=== PATIENT | female | born 1975 | race Two or more races ===

== ENCOUNTER 2018-12-14 06:25 | Inpatient (IN) | payer OTHER ==
[2018-12-14] MEDS ORDERED: DESFLURANE 15 MIN (07:00)
[2018-12-14] MEDS ORDERED: NEOSTIGMINE 10 MG INJ (07:00)
[2018-12-14] MEDS ORDERED: NA BICARBONATE 8.4% 50 ML SYG (07:00)
[2018-12-14] MEDS ORDERED: GLYCOPYRROLATE 0.4 MG INJ (07:00)
[2018-12-14] MEDS ORDERED: ONDANSETRON 4 MG INJ (07:00)
[2018-12-14] MEDS ORDERED: FENTAnyl 50 MCG/ML VIAL ×2 (07:01→09:42)
[2018-12-14] MEDS ORDERED: PROPOFOL 0 ML (07:02)
[2018-12-14] MEDS ORDERED: MIDAZOLAM 1 MG/ML 2 ML INJ (07:02)
[2018-12-14] MEDS ORDERED: DEXAMETHASONE 4 MG/ML 5 ML INJ (07:13)
[2018-12-14] MEDS ORDERED: SUCCINYLCHOLINE CHLORIDE 100 MG/5 ML SYG IV (07:13)
[2018-12-14] MEDS ORDERED: METOCLOPRAMIDE 10 MG INJ (07:13)
[2018-12-14] MEDS ORDERED: LIDOCAINE 2% (SDV) 5 ML INJ (07:13)
[2018-12-14] MEDS ORDERED: ROCURONIUM 50 MG INJ (07:13)
[2018-12-14] MEDS ORDERED: PROPOFOL 20 ML ×2 (07:13)
[2018-12-14] MEDS ORDERED: LABETALOL HCL 20MG INJ IV (07:30)
[2018-12-14] MEDS ORDERED: IPRATROPIUM (NEB) 0.5 MG/2.5 ML AMP HHN (07:30)
[2018-12-14] MEDS ORDERED: LEVALBUTEROL (NEB) 1.25 MG/0.5 ML AMP HHN (07:30)
[2018-12-14] MEDS ORDERED: DIPHENHYDRAMINE 50 MG INJ IV (07:30)
[2018-12-14] MEDS ORDERED: HYDROmorphONE 0.5 MG/0.5 ML SYG IV ×3 (07:30)
[2018-12-14] MEDS ORDERED: MIDAZOLAM 1 MG/ML 2 ML INJ IV (07:30)
[2018-12-14] MEDS ORDERED: MEPERIDINE 25 MG INJ IV (07:30)
[2018-12-14] MEDS ORDERED: LORAZEPAM 2 MG INJ IV (07:30)
[2018-12-14] MEDS ORDERED: hydrALAzine 20 MG INJ IV (07:30)
[2018-12-14] MEDS ORDERED: FENTAnyl 50 MCG/ML VIAL IV (07:30)
[2018-12-14] MEDS: HEPARIN 1000 UNITS/ML 10 ML INJ (08:55)
[2018-12-14] MEDS: CEFAZOLIN 1 GM INJ (08:55)
[2018-12-14] MEDS: GELATIN SIZE 100 SPONGE (08:55)
[2018-12-14] MEDS: THROMBIN 5000 UNIT VIAL (08:55)
[2018-12-14] MEDS: ROPIVACAINE 0.5 % 30 ML VIAL (08:55)
[2018-12-14] MEDS ORDERED: hydrALAzine 20 MG INJ (10:21)
[2018-12-14] MEDS ORDERED: HYDROmorphONE 2 MG/ML SYG (11:40)
[2018-12-14] MEDS: ONDANSETRON 4 MG INJ IV (13:05)
[2018-12-14] MEDS: FENTAnyl 50 MCG/ML VIAL IV (13:06)
[2018-12-14] MEDS ORDERED: ONDANSETRON 4 MG INJ IV (14:30)
[2018-12-14] MEDS ORDERED: GLUCAGON 1 MG INJ IM (17:30)
[2018-12-14] MEDS ORDERED: DEXTROSE 50% 50 ML SYRINGE IV ×2 (17:30)
[2018-12-14] MEDS ORDERED: GLUCOSE GEL 15 GRAM TUBE BUCCAL (17:30)
[2018-12-14] MEDS ORDERED: GLUCOSE GEL 15 GRAM TUBE PO ×2 (17:30)
[2018-12-14] MEDS: SOD CHLORIDE 0.9% 1,000 ML IV (17:34)
[2018-12-14] MEDS: INSULIN ASPART [NOVOLOG] 3 ML PEN SC ×2 (19:04→20:37)
[2018-12-14] MEDS: SENNA/DOCUSATE NA (8.6MG/50MG) TAB PO (21:00)
[2018-12-14] MEDS: ACETAMINOPHEN 325 MG TAB PO (21:32)
[2018-12-15] MEDS: HYDROmorphONE 0.5 MG/0.5 ML SYG IV ×3 (04:15→17:15)
[2018-12-15 06:28] LABS: ADD MAN DIFF? NO
[2018-12-15 06:33] LABS: BASOPHILS % 0.1 % (0.0-2.0); HEMATOCRIT 27.1 % (37.0-47.0); HEMOGLOBIN 9.3 g/dl (12.0-16.0); LYMPHOCYTES # 1.8 10^3/ul (0.8-2.9); MEAN CORPUSCULAR HEMOGLOBIN 26.8 pg (29.0-33.0); MEAN CORPUSCULAR HGB CONC 34.3 g/dl (32.0-37.0); MEAN CORPUSCULAR VOLUME 78.1 fl (82.0-101.0); MEAN PLATELET VOLUME 11.3 fl (7.4-10.4); MONOCYTE # 1.4 10^3/ul (0.3-0.9); NEUTROPHIL # 10.3 10^3/ul (1.6-7.5); NEUTROPHILS % 76.6 % (39.0-77.0); PLATELET COUNT 177 10^3/UL (140-415); RED BLOOD COUNT 3.47 10^6/ul (4.20-5.40); RED CELL DISTRIBUTION WIDTH 14.8 % (11.5-14.5)
[2018-12-15 06:33] LABS: WHITE BLOOD COUNT 13.5 10^3/ul (4.8-10.8)
[2018-12-15] MEDS: SOD CHLORIDE 0.9% 1,000 ML IV ×2 (06:50→19:52)
[2018-12-15 06:53] LABS: HEMOGLOBIN A1C 6.3 % (0-5.9)
[2018-12-15 06:59] LABS: INR 1.09; PARTIAL THROMBOPLASTIN TIME 29.3 Sec (23.0-35.0); PROTIME 14.2 Sec (11.9-14.9); PT RATIO 1.1
[2018-12-15] MEDS ORDERED: SUGAMMADEX SODIUM 200 MG/2 ML VIAL IV (07:00)
[2018-12-15] MEDS ORDERED: ALBUMIN HUMAN 25% 100 ML INJ (07:00)
[2018-12-15] MEDS ORDERED: METOCLOPRAMIDE 10 MG INJ (07:00)
[2018-12-15] MEDS ORDERED: DESFLURANE 15 MIN (07:00)
[2018-12-15] MEDS ORDERED: DEXAMETHASONE 4 MG/ML 5 ML INJ (07:00)
[2018-12-15] MEDS: INSULIN ASPART [NOVOLOG] 3 ML PEN SC ×4 (07:35→21:38)
[2018-12-15 07:46] LABS: ANION GAP 11 (5-13); BLOOD UREA NITROGEN 9 mg/dl (7-20); CALCIUM 8.9 mg/dl (8.4-10.2); CARBON DIOXIDE 22 mmol/L (21-31); CHLORIDE 109 mmol/L (97-110); CREATININE 0.47 mg/dl (0.44-1.00); Estimated GFR > 60 mL/min (>60); GLUCOSE 99 mg/dl (70-220); POTASSIUM 3.6 mmol/L (3.5-5.1); SODIUM 142 mmol/L (135-144)
[2018-12-15] MEDS: SENNA/DOCUSATE NA (8.6MG/50MG) TAB PO ×2 (09:00→21:00)
[2018-12-15] MEDS ORDERED: FENTAnyl 50 MCG/ML VIAL (09:12)
[2018-12-15] MEDS ORDERED: PROPOFOL 20 ML ×2 (09:13→09:15)
[2018-12-15] MEDS ORDERED: MIDAZOLAM 1 MG/ML 2 ML INJ (09:13)
[2018-12-15] MEDS ORDERED: LIDOCAINE 2% (SDV) 5 ML INJ (09:15)
[2018-12-15] MEDS ORDERED: CEFAZOLIN 1 GM INJ (09:16)
[2018-12-15] MEDS ORDERED: SUCCINYLCHOLINE CHLORIDE 100 MG/5 ML SYG IV (09:16)
[2018-12-15] MEDS ORDERED: ROCURONIUM 50 MG INJ (09:16)
[2018-12-15] MEDS ORDERED: ONDANSETRON 4 MG INJ (09:16)
[2018-12-15] MEDS ORDERED: THROMBIN (BOVINE) 5,000 UNIT VIAL TP (13:12)
[2018-12-15] MEDS ORDERED: LEVALBUTEROL (NEB) 1.25 MG/0.5 ML AMP HHN (15:00)
[2018-12-15] MEDS ORDERED: FENTAnyl 50 MCG/ML VIAL IV ×2 (15:00)
[2018-12-15] MEDS ORDERED: LABETALOL HCL 20MG INJ IV (15:00)
[2018-12-15] MEDS ORDERED: hydrALAzine 20 MG INJ IV (15:00)
[2018-12-15] MEDS ORDERED: DIPHENHYDRAMINE 50 MG INJ IV (15:00)
[2018-12-15] MEDS ORDERED: MEPERIDINE 25 MG INJ IV (15:00)
[2018-12-15] MEDS ORDERED: HYDROmorphONE 0.5 MG/0.5 ML SYG IV ×3 (15:00)
[2018-12-15] MEDS ORDERED: IPRATROPIUM (NEB) 0.5 MG/2.5 ML AMP HHN (15:00)
[2018-12-15] MEDS ORDERED: MIDAZOLAM 1 MG/ML 2 ML INJ IV (15:00)
[2018-12-15] MEDS: GELATIN SIZE 100 SPONGE (15:40)
[2018-12-15] MEDS: THROMBIN 5000 UNIT VIAL TOP (15:41)
[2018-12-15] MEDS: POLYMYXIN/BACITRACIN 1L IRRIG (15:41)
[2018-12-15] MEDS: ROPIVACAINE 0.5 % 30 ML VIAL (15:41)
[2018-12-15] MEDS: FENTAnyl 50 MCG/ML VIAL IV (17:35)
[2018-12-15] MEDS: ONDANSETRON 4 MG INJ IV (17:55)
[2018-12-15] MEDS: METOPROLOL 5 MG INJ IV (18:28)
[2018-12-15] MEDS: NS + KCL 20 MEQ 1,000 ML IV (18:56)
[2018-12-15] MEDS: LORAZEPAM 2 MG INJ IV (19:47)
[2018-12-16] MEDS: HYDROmorphONE 0.5 MG/0.5 ML SYG IV ×7 (01:34→23:59)
[2018-12-16] MEDS: NS + KCL 20 MEQ 1,000 ML IV ×3 (04:24→15:59)
[2018-12-16 04:50] LABS: ADD MAN DIFF? NO
[2018-12-16 04:55] LABS: WHITE BLOOD COUNT 10.2 10^3/ul (4.8-10.8)
[2018-12-16 04:55] LABS: BASOPHILS % 0.1 % (0.0-2.0); HEMATOCRIT 23.6 % (37.0-47.0); LYMPHOCYTES % 9.6 % (15.0-51.0); MEAN CORPUSCULAR HEMOGLOBIN 26.8 pg (29.0-33.0); MEAN CORPUSCULAR HGB CONC 33.9 g/dl (32.0-37.0); MEAN CORPUSCULAR VOLUME 79.2 fl (82.0-101.0); MONOCYTE # 0.8 10^3/ul (0.3-0.9); MONOCYTES % 7.8 % (0.0-11.0); NEUTROPHIL # 8.4 10^3/ul (1.6-7.5); NEUTROPHILS % 81.9 % (39.0-77.0); PLATELET COUNT 125 10^3/UL (140-415); RED BLOOD COUNT 2.98 10^6/ul (4.20-5.40)
[2018-12-16 05:11] LABS: ANION GAP 10 (5-13); BLOOD UREA NITROGEN 6 mg/dl (7-20); CALCIUM 9.2 mg/dl (8.4-10.2); CARBON DIOXIDE 24 mmol/L (21-31); CHLORIDE 109 mmol/L (97-110); CREATININE 0.44 mg/dl (0.44-1.00); Estimated GFR > 60 mL/min (>60); GLUCOSE 118 mg/dl (70-220); POTASSIUM 3.9 mmol/L (3.5-5.1); SODIUM 143 mmol/L (135-144)
[2018-12-16] MEDS: INSULIN ASPART [NOVOLOG] 3 ML PEN SC ×4 (07:30→20:33)
[2018-12-16] MEDS: SENNA/DOCUSATE NA (8.6MG/50MG) TAB PO ×2 (08:18→20:30)
[2018-12-16] MEDS ORDERED: ZOLPIDEM 5 MG TAB PO (21:30)
[2018-12-17] MEDS: NS + KCL 20 MEQ 1,000 ML IV ×3 (02:50→19:32)
[2018-12-17] MEDS: HYDROCODONE/APAP (5/325) TAB PO ×4 (02:50→21:23)
[2018-12-17] MEDS: HYDROmorphONE 0.5 MG/0.5 ML SYG IV ×4 (06:29→22:38)
[2018-12-17 06:47] LABS: ADD MAN DIFF? NO
[2018-12-17 06:51] LABS: BASOPHIL # 0.1 10^3/ul (0.0-0.1); BASOPHILS % 0.6 % (0.0-2.0); EOSINOPHILS % 0.2 % (0.0-7.0); HEMATOCRIT 23.7 % (37.0-47.0); HEMOGLOBIN 8.1 g/dl (12.0-16.0); LYMPHOCYTES # 2.8 10^3/ul (0.8-2.9); LYMPHOCYTES % 27.1 % (15.0-51.0); MEAN CORPUSCULAR HEMOGLOBIN 27.3 pg (29.0-33.0); MEAN CORPUSCULAR HGB CONC 34.2 g/dl (32.0-37.0); MEAN CORPUSCULAR VOLUME 79.8 fl (82.0-101.0); MEAN PLATELET VOLUME 10.8 fl (7.4-10.4); MONOCYTE # 0.7 10^3/ul (0.3-0.9); MONOCYTES % 6.8 % (0.0-11.0); NEUTROPHIL # 6.6 10^3/ul (1.6-7.5); NEUTROPHILS % 64.9 % (39.0-77.0); PLATELET COUNT 121 10^3/UL (140-415); RED BLOOD COUNT 2.97 10^6/ul (4.20-5.40)
[2018-12-17 06:51] LABS: WHITE BLOOD COUNT 10.2 10^3/ul (4.8-10.8)
[2018-12-17 07:22] LABS: ANION GAP 9 (5-13); Estimated GFR > 60 mL/min (>60)
[2018-12-17 07:27] LABS: BLOOD UREA NITROGEN 8 mg/dl (7-20); CALCIUM 8.3 mg/dl (8.4-10.2); CARBON DIOXIDE 22 mmol/L (21-31); CHLORIDE 109 mmol/L (97-110); CREATININE 0.46 mg/dl (0.44-1.00); GLUCOSE 89 mg/dl (70-220); POTASSIUM 3.5 mmol/L (3.5-5.1); SODIUM 140 mmol/L (135-144)
[2018-12-17] MEDS: INSULIN ASPART [NOVOLOG] 3 ML PEN SC ×4 (07:52→20:54)
[2018-12-17] MEDS: SENNA/DOCUSATE NA (8.6MG/50MG) TAB PO ×2 (07:53→20:50)
[2018-12-18] MEDS: HYDROmorphONE 0.5 MG/0.5 ML SYG IV ×7 (03:28→22:12)
[2018-12-18] MEDS: NS + KCL 20 MEQ 1,000 ML IV ×2 (05:32→15:55)
[2018-12-18] MEDS: SENNA/DOCUSATE NA (8.6MG/50MG) TAB PO ×2 (08:47→21:00)
[2018-12-18] MEDS: HYDROCODONE/APAP (5/325) TAB PO ×2 (08:47→14:50)
[2018-12-18] MEDS: INSULIN ASPART [NOVOLOG] 3 ML PEN SC ×4 (08:50→21:00)
[2018-12-19] MEDS: HYDROmorphONE 0.5 MG/0.5 ML SYG IV ×6 (00:21→22:17)
[2018-12-19] MEDS: NS + KCL 20 MEQ 1,000 ML IV ×3 (01:18→21:29)
[2018-12-19] MEDS: INSULIN ASPART [NOVOLOG] 3 ML PEN SC ×4 (08:50→20:54)
[2018-12-19] MEDS: HYDROCODONE/APAP (5/325) TAB PO ×3 (09:01→20:36)
[2018-12-19] MEDS: SENNA/DOCUSATE NA (8.6MG/50MG) TAB PO ×2 (09:09→20:31)
[2018-12-19] MEDS: MAGNESIUM HYDROXIDE 30ML CUP PO (13:54)
[2018-12-19 15:03] LABS: ADD MAN DIFF? NO
[2018-12-19 15:06] LABS: BASOPHILS % 0.5 % (0.0-2.0); EOSINOPHILS # 0.1 10^3/ul (0.0-0.5); EOSINOPHILS % 1.5 % (0.0-7.0); HEMATOCRIT 26.6 % (37.0-47.0); HEMOGLOBIN 9.2 g/dl (12.0-16.0); LYMPHOCYTES # 2.2 10^3/ul (0.8-2.9); LYMPHOCYTES % 25.2 % (15.0-51.0); MEAN CORPUSCULAR HEMOGLOBIN 26.7 pg (29.0-33.0); MEAN CORPUSCULAR HGB CONC 34.6 g/dl (32.0-37.0); MEAN CORPUSCULAR VOLUME 77.3 fl (82.0-101.0); MEAN PLATELET VOLUME 9.7 fl (7.4-10.4); MONOCYTE # 0.6 10^3/ul (0.3-0.9); MONOCYTES % 6.8 % (0.0-11.0); NEUTROPHIL # 5.7 10^3/ul (1.6-7.5); NEUTROPHILS % 65.8 % (39.0-77.0); PLATELET COUNT 202 10^3/UL (140-415); RED BLOOD COUNT 3.44 10^6/ul (4.20-5.40); RED CELL DISTRIBUTION WIDTH 14.9 % (11.5-14.5)
[2018-12-19 15:06] LABS: WHITE BLOOD COUNT 8.7 10^3/ul (4.8-10.8)
[2018-12-19 15:27] LABS: ANION GAP 9 (5-13); BLOOD UREA NITROGEN 5 mg/dl (7-20); CARBON DIOXIDE 24 mmol/L (21-31); CHLORIDE 107 mmol/L (97-110); CREATININE 0.45 mg/dl (0.44-1.00); Estimated GFR > 60 mL/min (>60); GLUCOSE 152 mg/dl (70-220); SODIUM 140 mmol/L (135-144)
[2018-12-20] MEDS: HYDROCODONE/APAP (5/325) TAB PO ×4 (00:55→20:46)
[2018-12-20] MEDS: NS + KCL 20 MEQ 1,000 ML IV ×2 (04:28→08:00)
[2018-12-20 05:31] LABS: ADD MAN DIFF? NO
[2018-12-20 05:46] LABS: BASOPHILS % 0.6 % (0.0-2.0); EOSINOPHILS # 0.1 10^3/ul (0.0-0.5); EOSINOPHILS % 1.7 % (0.0-7.0); HEMOGLOBIN 10.9 g/dl (12.0-16.0); LYMPHOCYTES # 1.9 10^3/ul (0.8-2.9); LYMPHOCYTES % 26.4 % (15.0-51.0); MEAN CORPUSCULAR HEMOGLOBIN 26.6 pg (29.0-33.0); MEAN CORPUSCULAR HGB CONC 34.1 g/dl (32.0-37.0); MEAN PLATELET VOLUME 10.1 fl (7.4-10.4); MONOCYTE # 0.6 10^3/ul (0.3-0.9); NEUTROPHIL # 4.6 10^3/ul (1.6-7.5); NEUTROPHILS % 62.9 % (39.0-77.0); PLATELET COUNT 204 10^3/UL (140-415); RED CELL DISTRIBUTION WIDTH 15.2 % (11.5-14.5)
[2018-12-20 05:46] LABS: WHITE BLOOD COUNT 7.3 10^3/ul (4.8-10.8)
[2018-12-20] MEDS: HYDROmorphONE 0.5 MG/0.5 ML SYG IV ×2 (06:51→12:23)
[2018-12-20] MEDS: INSULIN ASPART [NOVOLOG] 3 ML PEN SC ×4 (07:50→20:43)
[2018-12-20] MEDS: SENNA/DOCUSATE NA (8.6MG/50MG) TAB PO ×2 (08:35→20:45)
[2018-12-20 14:29] LABS: BLOOD UREA NITROGEN 5 mg/dl (7-20); CALCIUM 9.2 mg/dl (8.4-10.2); CARBON DIOXIDE 23 mmol/L (21-31); CHLORIDE 106 mmol/L (97-110); CREATININE 0.43 mg/dl (0.44-1.00); Estimated GFR > 60 mL/min (>60); GLUCOSE 132 mg/dl (70-220); POTASSIUM 4.2 mmol/L (3.5-5.1)
[2018-12-20 14:35] LABS: ANION GAP 11 (5-13); SODIUM 140 mmol/L (135-144)
[2018-12-21] MEDS: HYDROCODONE/APAP (5/325) TAB PO ×5 (01:19→19:49)
[2018-12-21] MEDS: INSULIN ASPART [NOVOLOG] 3 ML PEN SC ×4 (07:50→21:00)
[2018-12-21] MEDS: SENNA/DOCUSATE NA (8.6MG/50MG) TAB PO ×2 (09:04→19:49)
[2018-12-21] MEDS: MAGNESIUM CITRATE 300 ML BTL PO (20:50)
[2018-12-21] MEDS: DOCUSATE SODIUM 100 MG CAP PO (20:50)
[2018-12-22] MEDS: HYDROCODONE/APAP (5/325) TAB PO ×3 (02:31→11:17)
[2018-12-22] MEDS: SENNA/DOCUSATE NA (8.6MG/50MG) TAB PO (09:15)
[2018-12-22] MEDS: INSULIN ASPART [NOVOLOG] 3 ML PEN SC ×2 (09:16→13:28)
[2018-12-22] MEDS: DOCUSATE SODIUM 100 MG CAP PO (09:16)
== END 2018-12-22 17:35 | disposition home or self-care (01) | DRG 455 ==
LOC: REC 06:25 → TEL 12-17 02:36 → MS1 12-18 06:55 → ICU 12:33
PROVIDERS: Internal Medicine
PROC: 0SG10A0 Fusion of 2 or more Lumbar Vertebral Joints with Interbody Fusion Device, Anterior Approach, Anterior Column, Open Approach (ICD-10-PCS; principal; 2018-12-14 08:18)
PROC: 0SG1071 Fusion of 2 or more Lumbar Vertebral Joints with Autologous Tissue Substitute, Posterior Approach, Posterior Column, Open Approach (ICD-10-PCS; 2018-12-14 08:18)
PROC: 0SG30A0 Fusion of Lumbosacral Joint with Interbody Fusion Device, Anterior Approach, Anterior Column, Open Approach (ICD-10-PCS; 2018-12-14 08:18)
PROC: 0SB20ZZ Excision of Lumbar Vertebral Disc, Open Approach (ICD-10-PCS; 2018-12-14 08:18)
PROC: 0SB40ZZ Excision of Lumbosacral Disc, Open Approach (ICD-10-PCS; 2018-12-14 08:18)
PROC: 0SB00ZZ Excision of Lumbar Vertebral Joint, Open Approach (ICD-10-PCS; 2018-12-14 08:18)
PROC: 0SG3071 Fusion of Lumbosacral Joint with Autologous Tissue Substitute, Posterior Approach, Posterior Column, Open Approach (ICD-10-PCS; 2018-12-14 08:18)
DX: M47.26 Other spondylosis with radiculopathy, lumbar region (principal); M51.16 Intervertebral disc disorders with radiculopathy, lumbar region; M51.17 Intervertebral disc disorders with radiculopathy, lumbosacral region; I10 Essential (primary) hypertension; E78.5 Hyperlipidemia, unspecified; I95.9 Hypotension, unspecified; D64.9 Anemia, unspecified; E88.2 Lipomatosis, not elsewhere classified; M71.38 Other bursal cyst, other site; K59.00 Constipation, unspecified; E11.9 Type 2 diabetes mellitus without complications
CPT/HCPCS: 71045; 72110; 72114; 80048; 82962; 83036; 84703; 85025; 85610; 85730; 86850; 86900; 86901; 86920; 87081; 88304; 90686; 93005; 97110; 97116; 97161; 97530

== ENCOUNTER 2018-12-23 19:38 | Emergency (ER) | payer OTHER ==
[2018-12-23 20:31] LABS: ADD MAN DIFF? NO
[2018-12-23 20:33] LABS: BASOPHIL # 0.1 10^3/ul (0.0-0.1); BASOPHILS % 0.7 % (0.0-2.0); EOSINOPHILS # 0.2 10^3/ul (0.0-0.5); EOSINOPHILS % 1.8 % (0.0-7.0); HEMATOCRIT 30.4 % (37.0-47.0); HEMOGLOBIN 10.1 g/dl (12.0-16.0); LYMPHOCYTES # 2.3 10^3/ul (0.8-2.9); LYMPHOCYTES % 26.1 % (15.0-51.0); MEAN CORPUSCULAR HEMOGLOBIN 26.9 pg (29.0-33.0); MEAN CORPUSCULAR HGB CONC 33.2 g/dl (32.0-37.0); MEAN CORPUSCULAR VOLUME 81.1 fl (82.0-101.0); MEAN PLATELET VOLUME 9.3 fl (7.4-10.4); MONOCYTE # 0.8 10^3/ul (0.3-0.9); MONOCYTES % 8.5 % (0.0-11.0); NEUTROPHIL # 5.5 10^3/ul (1.6-7.5); NEUTROPHILS % 62.4 % (39.0-77.0); PLATELET COUNT 304 10^3/UL (140-415); RED BLOOD COUNT 3.75 10^6/ul (4.20-5.40); RED CELL DISTRIBUTION WIDTH 15.3 % (11.5-14.5)
[2018-12-23 20:33] LABS: WHITE BLOOD COUNT 8.8 10^3/ul (4.8-10.8)
[2018-12-23 20:43] LABS: ADD UMIC YES; UR ASCORBIC ACID NEGATIVE (NEGATIVE); UR BACTERIA FEW /HPF (NONE SEEN); UR BILIRUBIN (Dip) NEGATIVE (NEGATIVE); UR BLOOD (Dip) 3+ mg/dL (NEGATIVE); UR CLARITY SLIGHTLY CLOUDY (CLEAR); UR COLOR YELLOW (YELLOW); UR GLUCOSE (Dip) NEGATIVE (NEGATIVE); UR KETONES (Dip) NEGATIVE (NEGATIVE); UR LEUKOCYTE ESTERASE (Dip) TRACE Leu/ul (NEGATIVE); UR MUCUS FEW /HPF (NONE SEEN); UR NITRITE (Dip) NEGATIVE (NEGATIVE); UR RBC 5 /HPF (0-5); UR SPECIFIC GRAVITY (Dip) 1.013 (1.003-1.030); UR SQUAMOUS EPITHELIAL CELL FEW /HPF (FEW); UR TOTAL PROTEIN (Dip) NEGATIVE (NEGATIVE); UR UROBILINOGEN (Dip) NEGATIVE (NEGATIVE); UR WBC 9 /HPF (0-5)
[2018-12-23] MEDS: PIPER-TAZO 3.375 GM IV (PMX) 100 ML IVPB (20:48)
[2018-12-23] MEDS: ACETAMINOPHEN 325 MG TAB PO (20:48)
[2018-12-23] MEDS: SODIUM CHLORIDE 0.9% 1L BAG IV* (20:48)
[2018-12-23 20:53] LABS: ALANINE AMINOTRANSFERASE 17 IU/L (13-69); ALBUMIN 4.4 g/dl (3.3-4.9); ALBUMIN/GLOBULIN RATIO 1.12; ALKALINE PHOSPHATASE 76 IU/L (42-121); ANION GAP 15 (5-13); ASPARTATE AMINO TRANSFERASE 37 IU/L (15-46); BILIRUBIN,INDIRECT 0.5 mg/dl (0-1.1); BILIRUBIN,TOTAL 0.5 mg/dl (0.2-1.3); BLOOD UREA NITROGEN 12 mg/dl (7-20); CALCIUM 9.5 mg/dl (8.4-10.2); CARBON DIOXIDE 21 mmol/L (21-31); CHLORIDE 103 mmol/L (97-110); CREATININE 0.58 mg/dl (0.44-1.00); Estimated GFR > 60 mL/min (>60); GLUCOSE 111 mg/dl (70-220); POTASSIUM 4.1 mmol/L (3.5-5.1); SODIUM 139 mmol/L (135-144); TOTAL PROTEIN 8.3 g/dl (6.1-8.1)
[2018-12-23 21:07] LABS: INR 0.98; PROTIME 13.1 Sec (11.9-14.9)
[2018-12-23 21:12] LABS: PARTIAL THROMBOPLASTIN TIME 30.8 Sec (23.0-35.0)
[2018-12-23] MEDS: VANCOMYCIN 1 GM (PMX) 250 ML IVPB (21:43)
== END 2018-12-23 22:42 | disposition home or self-care (01) ==
LOC: E/R 19:38
DX: Z48.01 Encounter for change or removal of surgical wound dressing (principal); E11.9 Type 2 diabetes mellitus without complications; Z79.84 Long term (current) use of oral hypoglycemic drugs
CPT/HCPCS: 36415; 71045; 80053; 81001; 83605; 85025; 85610; 85730; 87040; 87086; 93005; 96374; 96375; 99285-25

== ENCOUNTER 2018-12-30 14:45 | Emergency (ER) | payer OTHER | END 2018-12-30 18:56 | disposition home or self-care (01) | LOC: FTE 14:45 | DX: M79.605 Pain in left leg (principal); E11.9 Type 2 diabetes mellitus without complications; Z79.84 Long term (current) use of oral hypoglycemic drugs; Z98.890 Other specified postprocedural states | CPT/HCPCS: 93971; 99284-25 ==